=== PATIENT | female | born 1975 | race Two or more races ===

== ENCOUNTER 2022-12-27 06:46 | Day surgery (SDC) | payer OTHER ==
[~2022-12-27] VITALS: Ht 160 cm; Wt 63.3 kg
[2022-12-27] MEDS ORDERED: FISH OIL 1,2001 EAC7 (07:14)
[2022-12-27] MEDS ORDERED: PROG100 (07:14)
[2022-12-27 09:06] VITALS: BP 108/79
== END 2022-12-27 09:05 | disposition home or self-care (01) ==
LOC: ORSCSDS 06:46
PROVIDERS: Student in an Organized Health Care Education/Training Program
PROC: 0DBL8ZX Excision of Transverse Colon, Via Natural or Artificial Opening Endoscopic, Diagnostic (ICD-10-PCS; principal; 2022-12-27 08:00)
DX: Z12.11 Encounter for screening for malignant neoplasm of colon (principal); D12.3 Benign neoplasm of transverse colon; Z79.899 Other long term (current) drug therapy
CPT/HCPCS: 88305; J2704; J7120